=== PATIENT | female | born 1995 | race Caucasian/White ===

== ENCOUNTER 2017-07-02 13:26 | Emergency (ER) | payer OTHER ==
[2017-07-02 13:35] VITALS: BMI 20.7
[2017-07-02] MEDS ORDERED: SODIUM CHLORIDE 1,000 ML IV STA ×2 (13:41→15:06)
[2017-07-02] MEDS ORDERED: ONDANSETRON 4 MG/2 ML VIAL IVPB ONE (13:41)
[2017-07-02] MEDS ORDERED: ONDANSETRON 4 MG/2 ML VIAL ONE ×2 (13:42→17:15)
[2017-07-02] MEDS ORDERED: METOCLOPRAMIDE HCL INJECTION 10 MG/2 ML VIAL IVPB ONE (15:06)
--- NOTE | 2017-07-02 15:06 | PDOC ---
History of Present Illness - General Chief Complaint: Pain, Acute Stated Complaint: ABD PAIN Time Seen by Provider: 07/02/17 15:02 History Source: Patient Exam Limitations: No Limitations - History of Present Illness Initial Comments: 07/02/17 15:39 Patient is a 21-year-old female past medical history of alcoholic gastritis, who presents to emergency department today complaining of uncontrollable vomiting after taking azithromycin. She states that she was prescribed azithromycin for an upper respiratory infection and she started taking the pills today. She reports that after taking the pills approximately half an hour later she developed uncontrollable vomiting, nausea and diarrhea. She states that her whole abdomen hurts from vomiting. She also states that she has had cyclic oh vomiting in the past due to alcohol for which she has stopped. Denies fevers, shortness of breath, difficulty breathing, chest pain. Denies alcohol, drug use. Patient is a nonsmoker. Past History - Travel Traveled outside of the country in the last 30 days: No Close contact w/someone who was outside of country & ill: No - Past Medical History Allergies/Adverse Reactions: Allergies Allergy/AdvReac Type Severity Reaction Status Date / Time No Known Allergies Allergy Verified 03/12/13 17:15 Home Medications: Ambulatory Orders NK [No Known Home Medication] 07/02/17 Asthma: No Cancer: No Cardiac Disorders: No COPD: No Diabetes: No HTN: No Seizures: No Thyroid Disease: No - Suicide/Smoking/Psychosocial Hx Smoking Status: No Smoking History: Never smoked Have you smoked in the past 12 months: No Number of Cigarettes Smoked Daily: 0 Information on smoking cessation initiated: No Hx Alcohol Use: No Drug/Substance Use Hx: No Substance Use Type: None Hx Substance Use Treatment: No Review of Systems - Review of Systems Able to Perform ROS?: Yes Comments:: 07/02/17 16:41 CONSTITUTIONAL: Absent: fever, chills, diaphoresis, generalized weakness, malaise, loss of appetite HEENT: Absent: rhinorrhea, nasal congestion, throat pain, throat swelling, difficulty swallowing, mouth swelling, ear pain, eye pain, visual Changes CARDIOVASCULAR: Absent: chest pain, loss of consciousness, palpitations, irregular heart rate, peripheral edema RESPIRATORY: Absent: cough, shortness of breath, dyspnea with exertion, orthopnea, wheezing, stridor, hemoptysis GASTROINTESTINAL: Present: abdominal pain, nausea, vomiting, diarrhea. Absent: abdominal distension, constipation, melena, hematochezia GENITOURINARY: Absent: dysuria, frequency, urgency, hesitancy, hematuria, flank pain, genital pain MUSCULOSKELETAL: Absent: myalgia, arthralgia, joint swelling SKIN: Absent: rash, itching, pallor HEMATOLOGIC/IMMUNOLOGIC: Absent: easy bleeding, easy bruising, lymphadenopathy, frequent infections ENDOCRINE: Absent: unexplained weight gain, unexplained weight loss, heat intolerance, cold intolerance NEUROLOGIC: Absent: headache, focal weakness or paresthesias, dizziness, unsteady gait, seizure, mental status changes, bladder or bowel incontinence PSYCHIATRIC: Absent: anxiety, depression, suicidal or homicidal ideation, hallucinations. Is the patient limited Romanian proficient: No *Physical Exam - Vital Signs Last Vital Signs Temp Pulse Resp BP Pulse Ox 98 F 72 20 117/68 100 07/02/17 13:32 07/02/17 13:32 07/02/17 13:32 07/02/17 13:32 07/02/17 13:32 - Physical Exam Comments: 07/02/17 16:42 GENERAL: Well developed, well nourished. Awake and alert. In mild distress, actively vomiting. HEENT: Normocephalic, atraumatic. PERRLA, EOMI. No conjunctival pallor. Sclera are non- icteric. Moist mucous membranes. Oropharynx is clear. NECK: Supple. Full ROM. No JVD. Carotid pulses 2+ and symmetric, without bruits. No thyromegaly. No lymphadenopathy. CARDIOVASCULAR: Regular rate and rhythm. No murmurs, rubs, or gallops. Distal pulses are 2+ and symmetric. PULMONARY: No evidence of respiratory distress. Lungs clear to auscultation bilaterally. No wheezing, rales or rhonchi. ABDOMINAL: TTP RUQ, LUQ, epigastric region. Soft. Non-distended. No rebound or guarding. No organomegaly. Normoactive bowel sounds. MUSCULOSKELETAL Normal range of motion at all joints. No bony deformities or tenderness. No CVA tenderness. EXTREMITIES: No cyanosis. No clubbing. No edema. No calf tenderness. SKIN: Warm and dry. Normal capillary refill. No rashes. No jaundice. NEUROLOGICAL: Alert, awake, appropriate. Cranial nerves 2-12 intact. No deficits to light touch and temperature in face, upper extremities and lower extremities. No motor deficits in the in face, upper extremities and lower extremities. Normoreflexic in the upper and lower extremities. Normal speech. Toes are down- going bilaterally. Gait is normal without ataxia. PSYCHIATRIC: Cooperative. Good eye contact. Appropriate mood and affect. ED Treatment Course - LABORATORY CBC & Chemistry Diagram: 07/02/17 15:36 07/02/17 15:55 - Medications Given in the ED: ED Medications Discontinued Medications Generic Name Dose Route Start Last Admin Trade Name Mitch PRN Reason Stop Dose Admin Sodium Chloride 1,000 mls @ 1,000 mls/hr 07/02/17 13:41 07/02/17 13:59 Normal Saline - IV 07/02/17 14:40 1,000 mls/hr ASDIR STA Administration Ondansetron HCl 4 mg 07/02/17 13:41 07/02/17 14:00 Zofran Injection IVPB 07/02/17 13:42 4 mg ONCE ONE Administration Medical Decision Making - Medical Decision Making 07/02/17 15:43 Patient is a 21-year-old female past medical history of alcoholic gastritis, who presents to the emergency department today complaining of uncontrollable nausea and vomiting for approximately one hour due to azithromycin. Patient received Zofran and famotidine with no relief. 1.basic labs 2.Reglan, Benadryl, IV fluids 3.reevaluate 07/02/17 16:43 Patient still vomiting despite treatment. Will give another dose of Zofran at this time. We'll also order UA and urine tox. 07/02/17 18:43 Patient still vomiting after 2 doses of Zofran Reglan, famotidine and Toradol. We'll try Ativan at this time 07/02/17 19:00 Sign out given to Bina Raymundo NP. Pending U tox. If patient is vomiting is controlled may home. *DC/Admit/Observation/Transfer - Referrals Referrals: Anitra Burch [Primary Care Provider] - - Patient Instructions - Post Discharge Activity
[2017-07-02] MEDS ORDERED: KETOROLAC TROMETHAMINE 30 MG/1 ML VIAL IVPUSH ONE (15:07)
[2017-07-02] MEDS ORDERED: METOCLOPRAMIDE HCL INJECTION 10 MG/2 ML VIAL ONE (15:14)
[2017-07-02] MEDS ORDERED: FAMOTIDINE 20 MG/50 ML IVPB 20 MG/50 ML MG IVPB ONE (15:15)
[2017-07-02] MEDS ORDERED: KETOROLAC TROMETHAMINE 30 MG/1 ML VIAL ONE (15:15)
[2017-07-02 16:22] LABS: BASO % 0.2 % (0-2.0); EOS % 0.8 % (0-4.5); HEMATOCRIT 39.2 % (32.4-45.2); LYMPH % 15.7 % (8-40); MCH 31.8 pg (25.7-33.7); MCHC 33.3 g/dl (32.0-36.0); MEAN CELL VOLUME 95.6 fl (80-96); MEAN PLT VOLUME 8.6 fl (7.5-11.1); MONO % 4.4 % (3.8-10.2); NEUT % 78.9 % (42.8-82.8); PLATELET COUNT 295 K/MM3 (134-434); RDW 12.3 % (11.6-15.6)
[2017-07-02 16:29] LABS: ALBUMIN 4.3 g/dl (3.4-5.0); ANION GAP 12 (8-16); BILIRUBIN,TOTAL 0.3 mg/dL (0.2-1.0); BLOOD UREA NITROGEN 15 mg/dL (7-18); CALCIUM 9.4 mg/dL (8.5-10.1); CHLORIDE 104 mmol/L (98-107); CO2 23 mmol/L (21-32); CREATININE 0.6 mg/dL (0.55-1.02); GLUCOSE,RANDOM 73 mg/dL (74-106); POTASSIUM 3.9 mmol/L (3.5-5.1); SGOT/AST 19 U/L (15-37); SGPT/ALT 25 U/L (12-78); SODIUM 139 mmol/L (136-145); TOT PROT 7.8 g/dl (6.4-8.2)
[2017-07-02 16:30] LABS: LIPASE 142 U/L (73-393)
[2017-07-02 16:38] LABS: ALK PHOS 69 U/L (45-117)
[2017-07-02] MEDS ORDERED: ONDANSETRON 4 MG/2 ML VIAL IVPUSH ONE (17:05)
[2017-07-02 18:56] LABS: URINE APPEARANCE CLEAR; URINE BILIRUBIN NEGATIVE (NEGATIVE); URINE BLOOD NEGATIVE (NEGATIVE); URINE COLOR STRAW; URINE GLUCOSE (UA) NEGATIVE (NEGATIVE); URINE KETONE TRACE (NEGATIVE); URINE LEUK ESTERASE NEGATIVE (NEGATIVE); URINE NITRITE NEGATIVE (NEGATIVE); URINE PROTEIN NEGATIVE (NEGATIVE); URINE UROBILINOGEN NEGATIVE mg/dL (0.2-1.0)
[2017-07-02] MEDS ORDERED: LORazepam 2 MG/ML SDV VIAL ONE (19:01)
[2017-07-02 19:55] VITALS: BP 113/86; PULSE 82; TEMP 98.3
[2017-07-02] MEDS ORDERED: TRIMETHOBENZAMIDE HCL 300 MG CAPSULE PO ONE (20:01)
[2017-07-02] MEDS ORDERED: SODIUM CHLORIDE 0.9% 1000 ML INFUS.BAG IV ONE (20:02)
[2017-07-02 20:21] LABS: URINE AMPHETAMINES NEGATIVE ng/ml (CUTOFF=500)
[2017-07-02 20:22] LABS: COCAINE, UR NEGATIVE ng/ml (CUTOFF=300); METHADONE, UR NEGATIVE ng/ml (CUTOFF=300); OPIATES, URI NEGATIVE ng/ml (CUTOFF=300); PHENCYCLIDINE,URINE NEGATIVE ng/ml (CUTOFF=25); URINE BARBITURATES NEGATIVE ng/ml (CUTOFF=200); URINE BENZODIAZEPINES NEGATIVE ng/ml (CUTOFF=200)
--- NOTE | 2017-07-02 20:34 | PDOC ---
*Physical Exam - Vital Signs Last Vital Signs Temp Pulse Resp BP Pulse Ox 98.3 F 82 18 113/86 98 07/02/17 19:55 07/02/17 19:55 07/02/17 19:55 07/02/17 19:55 07/02/17 19:55 - Physical Exam Comments: 07/02/17 20:29 Sign-out received from outgoing ER provider Qamar. Ancillary studies reviewed. Patient utox positive for marijuana. Pt interviewed and examined. Patient states she is still nauseous and now a "a little drowsy." Will trial Tigan and another liter of IVF and reassess. Patient denies any abdominal pain at this time, clinical presentation consistent with cyclical vomiting secondary to marijuana use. ED Treatment Course - LABORATORY CBC & Chemistry Diagram: 07/02/17 15:36 07/02/17 15:55 - ADDITIONAL ORDERS Additional order review: Laboratory Results 07/02/17 07/02/17 07/02/17 18:25 18:25 15:55 Sodium Potassium Chloride Carbon Dioxide Anion Gap BUN Creatinine Creat Clearance w eGFR Random Glucose Calcium Total Bilirubin AST ALT Alkaline Phosphatase Total Protein Albumin Lipase 142 TSH Beta HCG, Quant < 1.0 Urine Color Straw Urine Appearance Clear Urine pH 7.0 Ur Specific [place] 1.016 Urine Protein Negative Urine Glucose (UA) Negative Urine Ketones Trace H Urine Blood Negative Urine Nitrite Negative Urine Bilirubin Negative Urine Urobilinogen Negative Ur Leukocyte Esterase Negative Opiates Screen Negative Methadone Screen Negative Barbiturate Screen Negative Phencyclidine Screen Negative Ur Amphetamines Screen Negative MDMA (Ecstasy) Screen Negative Benzodiazepines Screen Negative Cocaine Screen Negative U Marijuana (THC) Screen Positive 07/02/17 15:55 Sodium 139 Potassium 3.9 Chloride 104 Carbon Dioxide 23 Anion Gap 12 BUN 15 Creatinine 0.6 Creat Clearance w eGFR > 60 Random Glucose 73 L Calcium 9.4 Total Bilirubin 0.3 AST 19 ALT 25 Alkaline Phosphatase 69 Total Protein 7.8 Albumin 4.3 Lipase TSH 2.64 Beta HCG, Quant Urine Color Urine Appearance Urine pH Ur Specific [place] Urine Protein Urine Glucose (UA) Urine Ketones Urine Blood Urine Nitrite Urine Bilirubin Urine Urobilinogen Ur Leukocyte Esterase Opiates Screen Methadone Screen Barbiturate Screen Phencyclidine Screen Ur Amphetamines Screen MDMA (Ecstasy) Screen Benzodiazepines Screen Cocaine Screen U Marijuana (THC) Screen 07/02/17 15:36 RBC 4.10 D MCV 95.6 MCHC 33.3 RDW 12.3 MPV 8.6 Neutrophils % 78.9 Lymphocytes % 15.7 D Monocytes % 4.4 Eosinophils % 0.8 D Basophils % 0.2 - Medications Given in the ED: ED Medications Discontinued Medications Generic Name Dose Route Start Last Admin Trade Name Arleyq PRN Reason Stop Dose Admin Diphenhydramine HCl 12.5 mg 07/02/17 15:07 07/02/17 15:28 Benadryl Injection - IVPUSH 07/02/17 15:08 12.5 mg ONCE ONE Administration Sodium Chloride 1,000 mls @ 1,000 mls/hr 07/02/17 13:41 07/02/17 13:59 Normal Saline - IV 07/02/17 14:40 1,000 mls/hr ASDIR STA Administration Famotidine/Sodium Chloride 20 mg in 50 mls @ 100 mls/hr 07/02/17 15:15 15:08 Pepcid 20 Mg Premixed Ivpb - IVPB 07/02/17 15:44 100 mls/hr ONCE ONE Administration Sodium Chloride 1,000 mls @ 1,000 mls/hr 07/02/17 15:06 07/02/17 15:28 Normal Saline - IV 07/02/17 16:05 1,000 mls/hr ASDIR STA Administration Ketorolac Tromethamine 30 mg 07/02/17 15:07 07/02/17 15:20 Toradol Injection - IVPUSH 07/02/17 15:08 30 mg ONCE ONE Administration Lorazepam 0.5 mg 07/02/17 18:15 07/02/17 19:05 Ativan Injection - IVPUSH 07/02/17 18:16 0.5 mg ONCE ONE Administration Metoclopramide HCl 10 mg 07/02/17 15:06 07/02/17 15:28 Reglan Injection - IVPB 07/02/17 15:07 10 mg ONCE ONE Administration Ondansetron HCl 4 mg 07/02/17 13:41 07/02/17 14:00 Zofran Injection IVPB 07/02/17 13:42 4 mg ONCE ONE Administration Ondansetron HCl 4 mg 07/02/17 17:05 07/02/17 17:17 Zofran Injection IVPUSH 07/02/17 17:06 4 mg ONCE ONE Administration *DC/Admit/Observation/Transfer Diagnosis at time of Disposition: Cyclical vomiting Qualifiers: Vomiting Intractability: intractable Nausea presence: with nausea Qualified Code(s): G43.A1 - Cyclical vomiting, intractable - Discharge Dispostion Disposition: HOME Condition at time of disposition: Stable Admit: No - Prescriptions Prescriptions: Ondansetron [Zofran *Odt*] 8 mg SL TID #21 od.tablet Pantoprazole Sodium [Protonix] 40 mg PO DAILY #14 tablet.dr - Referrals Referrals: Anitra Burch [Primary Care Provider] - - Patient Instructions Printed Discharge Instructions: DI for Vomiting -- Adult Additional Instructions: Please take medications as prescribed and discontinue the azithromycin. Please note that chronic marijuana use can trigger these symptoms. Follow up with your primary care doctor within the next 2 days. If you develop any new or worsening symptoms, please return to the ER. - Post Discharge Activity
[2017-07-02] MEDS ORDERED: DICYCLOMINE HCL 10 MG/5 ML PO ONE (20:42)
[2017-07-02] MEDS ORDERED: DICYCLOMINE HCL 10 MG CAPSULE ONE (20:50)
== END 2017-07-02 21:26 | disposition home or self-care (01) ==
LOC: JER 13:26
PROC: 3E033GC Introduction of Other Therapeutic Substance into Peripheral Vein, Percutaneous Approach (ICD-10-PCS; principal; 2017-07-02)
PROC: 3E033NZ Introduction of Analgesics, Hypnotics, Sedatives into Peripheral Vein, Percutaneous Approach (ICD-10-PCS; 2017-07-02)
PROC: 3E0333Z Introduction of Anti-inflammatory into Peripheral Vein, Percutaneous Approach (ICD-10-PCS; 2017-07-02)
PROC: 3E033GC Introduction of Other Therapeutic Substance into Peripheral Vein, Percutaneous Approach (ICD-10-PCS; 2017-07-02)
PROC: 3E033GC Introduction of Other Therapeutic Substance into Peripheral Vein, Percutaneous Approach (ICD-10-PCS; 2017-07-02)
DX: G43.A0 Cyclical vomiting, in migraine, not intractable (principal); T40.7X5A Adverse effect of cannabis (derivatives), initial encounter; Y92.89 Other specified places as the place of occurrence of the external cause
CPT/HCPCS: 36415; 80053; 80307; 81003; 83690; 84443; 84702; 85025; 87086; 99283-25

== ENCOUNTER 2017-10-22 07:45 | Emergency (ER) | payer OTHER ==
[2017-10-22 07:54] VITALS: BMI 20.2
--- NOTE | 2017-10-22 08:26 | PDOC ---
History of Present Illness - General History Source: Patient Exam Limitations: No Limitations - History of Present Illness Initial Comments: 10/22/17 08:42 The patient is a 22 year old female, with a significant past medical history of GERD, who presents to the emergency department with abdominal pain for approximately 10 days. The patient reports developing RUQ and epigastric pain s/ p ETOH use on 10/11/17. The patient reports being evaluated at [facility] for her pain, where she had bloodwork and an US, which were negative. Patient states she was discharged on Cefuroxime for a UTI, which she completed, but did not resolve her pain. The patient states she returned to the ED and was discharged on Bentyl with minimal relief of symptoms. Patient reports being evaluated by her PCP, who prescribed Omeprazole yesterday. Patient reports her pain is worse with eating, when taking her medication, or when lying down. She denies any nausea, vomiting, diarrhea, or constipation. She denies any dysuria, hematuria, frequency, or urgency. She denies any fever or chills. She denies any chest pain, shortness of breath, diaphoresis, or palpitations. No recent travel or sick contacts. Allergies: NKDA Past Surgical History: None reported Social History: Social ETOH use. Non smoker. No recreational drug use. <Sonja Em - Last Filed: 10/22/17 08:42> <Roseann Velazquez - Last Filed: 10/22/17 12:52> - General Chief Complaint: Pain, Acute Stated Complaint: ABDOMINAL PAIN Time Seen by Provider: 10/22/17 08:25 Past History <Sonja Em - Last Filed: 10/22/17 08:42> - Past Medical History Asthma: No Cancer: No Cardiac Disorders: No COPD: No Diabetes: No HTN: No Seizures: No Thyroid Disease: No Other medical history: gastritis - Immunization History Immunization Up to Date: Yes - Suicide/Smoking/Psychosocial Hx Smoking Status: No Smoking History: Never smoked Have you smoked in the past 12 months: No Number of Cigarettes Smoked Daily: 0 Hx Alcohol Use: No Drug/Substance Use Hx: No Substance Use Type: Marijuana Hx Substance Use Treatment: No <Roseann Velazquez - Last Filed: 10/22/17 12:52> - Past Medical History Allergies/Adverse Reactions: Allergies Allergy/AdvReac Type Severity Reaction Status Date / Time No Known Allergies Allergy Verified 10/22/17 07:48 Home Medications: Ambulatory Orders Dicyclomine HCl [Bentyl -] 20 mg PO Q8H 10/22/17 Omeprazole 20 mg PO DAILY 10/22/17 Review of Systems - Review of Systems Able to Perform ROS?: Yes Comments:: 10/22/17 08:42 GENERAL/CONSTITUTIONAL: No fever or chills. No weakness. HEAD, EYES, EARS, NOSE AND THROAT: No change in vision. No ear pain or discharge. No sore throat. GASTROINTESTINAL: +Abdominal pain(RUQ, Epigastric). No nausea, vomiting, diarrhea or constipation. GENITOURINARY: No dysuria, frequency, or change in urination. CARDIOVASCULAR: No chest pain or shortness of breath. RESPIRATORY: No cough, wheezing, or hemoptysis. MUSCULOSKELETAL: No joint or muscle swelling or pain. No neck or back pain. SKIN: No rash NEUROLOGIC: No headache, vertigo, loss of consciousness, or change in strength/ sensation. ENDOCRINE: No increased thirst. No abnormal weight change. HEMATOLOGIC/LYMPHATIC: No anemia, easy bleeding, or history of blood clots. ALLERGIC/IMMUNOLOGIC: No hives or skin allergy. <Sonja Em - Last Filed: 10/22/17 08:42> *Physical Exam - Vital Signs Last Vital Signs Temp Pulse Resp BP Pulse Ox 98.4 F 74 18 104/70 100 10/22/17 07:48 10/22/17 07:48 10/22/17 07:48 10/22/17 07:48 10/22/17 07:48 - Physical Exam Comments: 10/22/17 08:43 Constitutional: Awake, alert, oriented. No acute distress. Head: Normocephalic. Atraumatic Eyes: PERRL. EOMI. Conjunctivae are not pale. ENT: Mucous membranes are moist and intact. Posterior pharynx without exudates or erythema. Uvula midline. Neck: Supple. Full ROM. No lymphadenopathy. Cardiovascular: Regular rate. Regular rhythm. S1, S2 regular. Distal pulses are 2+ and symmetric. Pulmonary/Chest: No evidence of respiratory distress. Clear to auscultation bilaterally No wheezing, rales or rhonchi. Abdominal: Epigatric, RUQ, and LUQ tenderness to palpation, but no guarding, rebound, or rigidity. Soft and non-distended. No organomegaly. No palpable masses. Good bowel sounds. Back: No CVA tenderness. Musculoskeletal: No edema. No cyanosis. No clubbing. Full range of motion in all extremities. No calf tenderness. Radial/pedal pulses are intact and 2+ bilaterally Skin: Skin is warm and dry. No petechiae. No purpura. Neurological: Alert and oriented to person, place, and time. Cranial nerves II -XII are grossly intact. Normal speech. Strength is grossly symmetric. No sensory deficits. Psychiatric: Good eye contact. Normal interaction, affect and behavior. <Sonja Em - Last Filed: 10/22/17 08:42> - Vital Signs Last Vital Signs Temp Pulse Resp BP Pulse Ox 98.4 F 74 18 104/70 100 10/22/17 07:48 10/22/17 07:48 10/22/17 07:48 10/22/17 07:48 10/22/17 07:48 <Roseann Velazquez - Last Filed: 10/22/17 12:52> ED Treatment Course - LABORATORY CBC & Chemistry Diagram: 10/22/17 08:40 10/22/17 08:40 <Roseann Velazquez - Last Filed: 10/22/17 12:52> Medical Decision Making - Medical Decision Making 10/22/17 08:55 a/p: 22yo female with 2 week hx of epigastric pain -on bentyl and omeprazole as an outpt -has had labs/ultrasound at [facility] saw PMD yesterday -still with pain, no n/v/d -no urinary complaints though recently treated for UTI started after alcohol use hx of gastritis -will cehck labs, ultrasound gi cocktail will monitor and reassess 10/22/17 12:48 ultrasound without acute jose, no stones visualized lipase normal lft without acute findings renal function normal on re-eval: pt resting comfortably - easily arousable states feeling better discussed need for GI follow up with poss endoscopy for epigastric pain answered all questions only started omeprazole yesterday - discussed it may take some time for the pain to improve - poss PUD vs gastritis stable for d/c to home <Roseann Velazquez - Last Filed: 10/22/17 12:52> *DC/Admit/Observation/Transfer - Attestations Scribe Attestion: 10/22/17 08:44 Documentation prepared by Sonja Em, acting as medical records assistant for Roseann Velazquez DO. <Sonja Em - Last Filed: 10/22/17 08:42> - Discharge Dispostion Decision to Admit order: No - Attestations Physician Attestion: 10/22/17 12:52 I, Dr. Roseann Velazquez DO, attest that this document has been prepared under my direction and personally reviewed by me in its entirety. I further attest, that it accurately reflects all work, treatment, procedures and medical decision -making performed by me. <Roseann Velazquez - Last Filed: 10/22/17 12:52> Diagnosis at time of Disposition: Epigastric abdominal pain - Discharge Dispostion Disposition: HOME Condition at time of disposition: Stable - Referrals Referrals: Anitra Burch [Primary Care Provider] - Brandyn Hancock MD [Staff Physician] - Scott Patel MD [Staff Physician] - Doug Carter MD [Staff Physician] - - Patient Instructions Printed Discharge Instructions: DI for Epigastric Pain Additional Instructions: Please continue to take the omeprazole your PMD prescribed yesterday. Please return to the ED with any further concerns or worsening pain. Please stick to the BRAT diet (bananas, rice, apple sauce, and toast). Please drink clear liquids.
[2017-10-22 08:50] LABS: BASO % 0.7 % (0-2.0); EOS % 0.8 % (0-4.5); HEMATOCRIT 34.7 % (32.4-45.2); HEMOGLOBIN 11.9 GM/dL (10.7-15.3); LYMPH % 15.4 % (8-40); MCH 32.2 pg (25.7-33.7); MCHC 34.4 g/dl (32.0-36.0); MEAN CELL VOLUME 93.5 fl (80-96); MONO % 5.5 % (3.8-10.2); NEUT % 77.6 % (42.8-82.8); PLATELET COUNT 393 K/MM3 (134-434); RBC 3.71 M/mm3 (3.60-5.2); RDW 11.9 % (11.6-15.6); WHITE BLOOD COUNT 10.2 K/mm3 (4.0-10.0)
[2017-10-22 09:01] LABS: URINE APPEARANCE CLEAR; URINE BILIRUBIN NEGATIVE (<2.0 mg/dL); URINE COLOR YELLOW; URINE GLUCOSE (UA) NEGATIVE (NEGATIVE); URINE KETONE 1+ (NEGATIVE); URINE LEUK ESTERASE NEGATIVE (NEGATIVE); URINE NITRITE NEGATIVE (NEGATIVE); URINE PROTEIN NEGATIVE (NEGATIVE); URINE UROBILINOGEN NEGATIVE mg/dL (0.2-1.0)
[2017-10-22 09:16] LABS: CHLORIDE 101 mmol/L (98-107); POTASSIUM 4.1 mmol/L (3.5-5.1); SODIUM 136 mmol/L (136-145)
[2017-10-22 09:27] LABS: ALK PHOS 92 U/L (45-117); ANION GAP 8 (8-16); BILIRUBIN,TOTAL 0.2 mg/dL (0.2-1.0); CO2 27 mmol/L (21-32); SGOT/AST 24 U/L (15-37); SGPT/ALT 33 U/L (12-78); TOT PROT 8.1 g/dl (6.4-8.2)
[2017-10-22 09:43] LABS: ALBUMIN 3.5 g/dl (3.4-5.0); BLOOD UREA NITROGEN 9 mg/dL (7-18); CREATININE 0.6 mg/dL (0.55-1.02); GLUCOSE,RANDOM 99 mg/dL (74-106); LIPASE 139 U/L (73-393)
[2017-10-22 13:15] VITALS: BP 110/73; PULSE 80; TEMP 98.4
== END 2017-10-22 13:10 | disposition home or self-care (01) ==
LOC: JER 07:45
DX: R10.13 Epigastric pain (principal)
CPT/HCPCS: 36415; 71046-TC-FY; 76705-TC; 80053; 81003; 83690; 84703; 85025; 99283-25

== ENCOUNTER 2017-11-28 06:19 | Day surgery (SDC) | payer OTHER ==
[2017-11-27 11:56] VITALS: BMI 20.7
[2017-11-28] MEDS ORDERED: BUPIVACAINE HCL/PF 0.5% (5MG/ML) 10 ML VIAL ONE (07:21)
--- NOTE | 2017-11-28 07:52 | HP ---
Admitting History and Physical - Admission Chief Complaint: Pelvic pain / Right ovarian cyst History of Present Illness: 22 yo Para 1 with ovarian cyst associated with elevated tumor marker is pre op for Laparoscopic ovarian cystectomy, possible Oophorectomy and possible Laparotomy. History Source: Patient Limitations to Obtaining History: No Limitations - Past Medical History ...LMP: 11/27/17 ...: No ...Para: 1 - Past Surgical History Past Surgical History: Yes: None - Smoking History Smoking history: Never smoked Have you smoked in the past 12 months: No Aproximately how many cigarettes per day: 0 - Alcohol/Substance Use Hx Alcohol Use: No (quit 10/11/17) - Social History Usual Living Arrangement: Yes: With Child History of Recent Travel: No Home Medications - Allergies Allergies/Adverse Reactions: Allergies Allergy/AdvReac Type Severity Reaction Status Date / Time No Known Allergies Allergy Verified 11/28/17 06:46 - Home Medications Home Medications: Ambulatory Orders Metoclopramide HCl 5 mg PO AC 11/28/17 Pantoprazole Sodium 40 mg PO DAILY 11/28/17 oxyCODONE HCL [Roxicodone -] 5 mg PO Q4H PRN #18 tablet MDD 6 11/28/17 Family Disease History - Family Disease History Family History: Unremarkable Review of Systems - Review of Systems Constitutional: reports: No Symptoms Eyes: reports: No Symptoms HENT: reports: No Symptoms Neck: reports: No Symptoms Cardiovascular: reports: No Symptoms Respiratory: reports: No Symptoms Gastrointestinal: reports: No Symptoms Genitourinary: reports: Pain Breasts: reports: No Symptoms Reported Musculoskeletal: reports: No Symptoms Integumentary: reports: No Symptoms Neurological: reports: No Symptoms Endocrine: reports: No Symptoms Hematology/Lymphatic: reports: No Symptoms Psychiatric: reports: No Symptoms Pain Intensity: 6 Physical Examination Vital Signs: Vital Signs Temperature 98.0 F 11/28/17 06:44 Pulse Rate 66 11/28/17 06:44 Respiratory Rate 20 11/28/17 06:44 Blood Pressure 111/74 11/28/17 06:44 O2 Sat by Pulse Oximetry (%) 98 11/28/17 06:44 Constitutional: Yes: Well Nourished Eyes: Yes: Conjunctiva Clear HENT: Yes: Atraumatic Neck: Yes: Supple Cardiovascular: Yes: Regular Rate and Rhythm Respiratory: Yes: Regular Gastrointestinal: Yes: Normal Bowel Sounds Breast(s): Yes: WNL Musculoskeletal: Yes: WNL Extremities: Yes: WNL Neurological: Yes: Alert, Oriented ...Motor Strength: WNL Psychiatric: Yes: Alert, Oriented Problem List - Problems (1) Ovarian cyst Code(s): N83.209 - UNSPECIFIED OVARIAN CYST, UNSPECIFIED SIDE Qualifiers: Laterality: right Qualified Code(s): N83.201 - Unspecified ovarian cyst, right side Assessment/Plan Right ovarian cyst Pre op for Laparoscopy Consent signed Anesthesia to see patient
[2017-11-28] MEDS ORDERED: ceFAZolin SODIUM 1 GM VIAL IVPB ONE (07:55)
[2017-11-28] MEDS ORDERED: BUPIVACAINE HCL/PF 0.5% (5MG/ML) 10 ML VIAL IJ ONE (08:12)
[2017-11-28] MEDS ORDERED: ACETAMINOPHEN INJECTION 100 ML IVPB ONE (08:41)
--- NOTE | 2017-11-28 08:57 | OP ---
Operative Note - Note: Operative Date: 11/28/17 Pre-Operative Diagnosis: Right ovarian cyst Operation: Laparoscopic oophorectomy Findings: Right ovarian cyst Post-Operative Diagnosis: Same as Pre-op Surgeon: Precious Villarreal Order Packer: Navarro Rizvi Anesthesiologist/COLD TYPE COMPOSING MACHINE OPERATOR: Isauro Kwan Anesthesia: General Specimens Removed: Right ovary Estimated Blood Loss (mls): 30
[2017-11-28] MEDS ORDERED: PROMETHAZINE HCL 25 MG/1 ML VIAL IVPUSH PRN (09:10)
[2017-11-28] MEDS ORDERED: ONDANSETRON 4 MG/2 ML VIAL IVPUSH PRN (09:10)
[2017-11-28] MEDS ORDERED: LACTATED RINGERS SOLUTION 1,000 ML IV SCH (09:15)
[2017-11-28 11:27] VITALS: TEMP 97.9
--- NOTE | 2017-11-28 12:11 | SURG ---
Surgery Algologist Note Algologist: Navarro Rizvi PA-C Date of Service: 11/28/17 Diagnosis: Right ovarian cyst Procedure: Laparoscopic right oophorectomy I was present for the entirety of the operative procedure. For further detail, please refer to operative report. Visit type - Case Type Case Type: Scheduled - New patient This patient is new to me today: Yes Date on this admission: 11/28/17
[2017-11-28 15:37] VITALS: BP 112/67; PULSE 64
--- NOTE | 2017-12-01 15:57 | PATH ---
Surgical Pathology Report Patient Name: ANTHONY RUCKER [facility]. Rec. #: [id number] /Age/Gender: 1995 (Age: 22) / F Account: [id number] Location: [facility] SURGICAL Taken: 11/28/2017 Received: 11/28/2017 Reported: 12/01/2017 Physicians: Precious Villarreal M.D. Specimen(s) Received A: ENDOMETRIAL IMPLANT B: RIGHT OVARY Clinical History Right ovarian cyst Final Diagnosis A. ENDOMETRIAL IMPLANT, EXCISION: POLYPOID GRANULATION TISSUE WITH HEMORRHAGIC INFARCT. B. RIGHT OVARY, OOPHORECTOMY: OVARIAN TISSUE WITH MATURE CYSTIC TERATOMA. Electronically Signed Renée Perez M.D. Gross Description A. Received in formalin labeled "endometrial implant," is a 1.0 x 0.9 x 0.3 cm patricia brown portion of soft tissue. The specimen is submitted in toto in one cassette. B. Received in formalin labeled "right ovary," is a 38 g, 4.8 x 4.7 x 3.6 cm cystic-appearing ovary. The outer surface is patricia and smooth. The lumen contains patricia sebaceous material and hair. No remaining normal ovarian parenchyma is identified. Separately received within the same container are 2 patricia-pink soft tissue fragments measuring 1.0 and 2.0 cm in greatest dimension. Reproductive Healthcare Assistant sections are submitted in 6 cassettes as follows: 5-8-sboesndehphmqe cyst; 5-smaller, bisected portion of separately received tissue; 6-larger, bisected portion of separately received tissue. /11/28/2017 saudi11/28/2017
== END 2017-11-28 15:00 | disposition home or self-care (01) ==
LOC: JASU-SURG 06:19
PROVIDERS: ATTEND Obstetrics & Gynecology
PROC: 0UT04ZZ Resection of Right Ovary, Percutaneous Endoscopic Approach (ICD-10-PCS; principal; 2017-11-28 07:30)
DX: D39.11 Neoplasm of uncertain behavior of right ovary (principal)
CPT/HCPCS: 88304-TC; 88305-TC; 94760; J0131

== ENCOUNTER 2020-06-19 13:09 | Emergency (ER) | payer OTHER ==
[2020-06-19 13:25] VITALS: BMI 20.2
[2020-06-19] MEDS ORDERED: ACETAMINOPHEN 1000 MG/100 ML BAG IVPB ONE (16:04)
[2020-06-19] MEDS ORDERED: FAMOTIDINE 20 MG/50 ML IVPB 20 MG/50 ML MG IVPB ONE ×2 (16:04→16:19)
[2020-06-19] MEDS ORDERED: MAG HYDROX/AL HYDROX/SIMETH 30 ML UNIT-DOSE CUP PO ONE (16:04)
[2020-06-19] MEDS ORDERED: ONDANSETRON 4 MG/2 ML VIAL IVPUSH ONE ×2 (16:05→18:50)
[2020-06-19] MEDS ORDERED: LACTATED RINGERS SOLUTION 1000 ML INFUS.BAG IV ONE (16:14)
[2020-06-19] MEDS ORDERED: MAG HYDROX/AL HYDROX/SIMETH 30 ML UNIT-DOSE CUP ONE (16:18)
[2020-06-19] MEDS ORDERED: ACETAMINOPHEN INJECTION 100 ML IVPB ONE (16:18)
[2020-06-19] MEDS ORDERED: ONDANSETRON 4 MG/2 ML VIAL ONE ×2 (16:19→19:06)
[2020-06-19 17:24] LABS: BASO % 0.3 % (0-2.0); HEMOGLOBIN 12.9 GM/dL (10.7-15.3); LYMPH % 11.1 % (8-40); MCH 32.7 pg (25.7-33.7); MCHC 33.8 g/dl (32.0-36.0); MEAN CELL VOLUME 96.7 fl (80-96); MEAN PLT VOLUME 8.1 fl (7.5-11.1); MONO % 3.2 % (3.8-10.2); NEUT % 85.4 % (42.8-82.8); PLATELET COUNT 256 K/MM3 (134-434); RBC 3.94 M/mm3 (3.60-5.2); RDW 12.7 % (11.6-15.6)
[2020-06-19 17:52] LABS: CALCIUM 9.5 mg/dL (8.5-10.1)
[2020-06-19 17:53] LABS: ALBUMIN 4.4 g/dl (3.4-5.0); BLOOD UREA NITROGEN 14.6 mg/dL (7-18)
[2020-06-19 17:54] LABS: MAGNESIUM 1.9 mg/dL (1.8-2.4)
[2020-06-19 17:56] LABS: CREATININE 0.7 mg/dL (0.55-1.3)
[2020-06-19 17:58] LABS: BILIRUBIN,TOTAL 0.4 mg/dL (0.2-1)
[2020-06-19 20:06] VITALS: BP 133/68; PULSE 88; TEMP 98
== END 2020-06-19 20:06 | disposition home or self-care (01) ==
LOC: JER 13:09
PROC: 3E0333Z Introduction of Anti-inflammatory into Peripheral Vein, Percutaneous Approach (ICD-10-PCS; principal; 2020-06-19)
PROC: 3E033GC Introduction of Other Therapeutic Substance into Peripheral Vein, Percutaneous Approach (ICD-10-PCS; 2020-06-19)
PROC: 3E033GC Introduction of Other Therapeutic Substance into Peripheral Vein, Percutaneous Approach (ICD-10-PCS; 2020-06-19)
PROC: 3E033GC Introduction of Other Therapeutic Substance into Peripheral Vein, Percutaneous Approach (ICD-10-PCS; 2020-06-19)
DX: R10.13 Epigastric pain (principal); R11.2 Nausea with vomiting, unspecified
CPT/HCPCS: 36415; 76705-TC; 80053; 83690; 83735; 84703; 85025; 93005; 93010; 99285-25; J0131

== ENCOUNTER → 2020-12-05 | Day surgery (SDC) | payer OTHER | END | disposition home or self-care (01) | LOC: JRADIR 09:34 | PROVIDERS: ATTEND Family Medicine | PROC: BU18YZZ Fluoroscopy of Uterus and Fallopian Tubes using Other Contrast (ICD-10-PCS; principal; 2020-12-05) | DX: N97.9 Female infertility, unspecified (principal) | CPT/HCPCS: 58340; 74740-TC-FY; 76000-TC-FY; 84703 ==

== ENCOUNTER 2023-05-13 22:15 | Inpatient (IN) | payer OTHER ==
[2023-05-14] MEDS ORDERED: DINOPROSTONE 10 MG VAGINAL SUPPOSITORY VG ONE (00:45)
[2023-05-14] MEDS ORDERED: ELECTROLYTE-148 SOLN 500 ML IV ONE (01:00)
[2023-05-14 01:21] LABS: BASO % 0.4 % (0-2.0); EOS % 0.7 % (0-4.5); HEMATOCRIT 31.4 % (32.4-45.2); LYMPH % 20.8 % (8-40); MCH 32.4 pg (25.7-33.7); MCHC 34.9 g/dl (32.0-36.0); MEAN CELL VOLUME 92.8 fl (80-96); MONO % 7.7 % (3.8-10.2); NEUT % 70.4 % (42.8-82.8); PLATELET COUNT 223 10^3/uL (134-434); RBC 3.38 M/mm3 (3.60-5.2); RDW 13.5 % (11.6-15.6); WHITE BLOOD COUNT 10.2 K/mm3 (4.0-10.0)
[2023-05-14 01:30] LABS: INR 0.97 (0.83-1.09); PROTHROMBIN TIME (PATIENT) 11.3 SEC (9.7-13.0)
[2023-05-14 01:33] LABS: ACTIVATED PTT 24.3 SECONDS (25.2-36.5)
[2023-05-14 01:39] LABS: POTASSIUM 3.5 mmol/L (3.5-5.1)
[2023-05-14 01:41] LABS: BLOOD UREA NITROGEN 7.8 mg/dL (7-18)
[2023-05-14 01:42] VITALS: BMI 29.2
[2023-05-14 01:44] LABS: CREATININE 0.6 mg/dL (0.55-1.3)
[2023-05-14 01:48] LABS: CALCIUM 8.3 mg/dL (8.5-10.1)
[2023-05-14] MEDS ORDERED: ELECTROLYTE-148 SOLN 1,000 ML IV SCH ×2 (02:00→08:30)
[2023-05-14 02:52] LABS: SYPHILIS W/ RPR CONF NON-REACTIVE (NONREACTIVE)
[2023-05-14 03:20] LABS: HIV INTERPRETATION NEGATIVE (NEGATIVE)
[2023-05-14] MEDS ORDERED: PROMETHAZINE HCL 25 MG/1 ML VIAL IVPB ONE (05:10)
[2023-05-14] MEDS ORDERED: BUTORPHANOL TARTRATE 1 MG/ML VIAL IVPB ONE (05:10)
[2023-05-14] MEDS ORDERED: PROMETHAZINE HCL 25 MG/1 ML VIAL ONE (05:12)
[2023-05-14] MEDS ORDERED: BUTORPHANOL TARTRATE 2 MG/ML VIAL ONE (05:12)
[2023-05-14] MEDS ORDERED: OXYTOCIN 30 UNITS in 0.9% NS 30 UNIT/500 ML INFUS.BAG IVPB ONE (05:58)
[2023-05-14] MEDS ORDERED: OXYTOCIN 30 UNITS in 0.9% NS 30 UNIT/500 ML INFUS.BAG IVPB SCH (06:00)
[2023-05-14] MEDS ORDERED: LIDOCAINE HCL/EPINEPHRINE/PF 10 ML VIAL ONE ×2 (08:21→10:28)
[2023-05-14] MEDS ORDERED: BUPIVACAINE HCL/PF 0.25% (2.5MG/ML) 10 ML VIAL ONE (08:21)
[2023-05-14] MEDS ORDERED: FENTANYL/BUPIVACAINE/NS/PF - PCEA - 50 ML DISP.SYRIN EP ONE (08:22)
[2023-05-14] MEDS ORDERED: NALOXONE HCL 0.4 MG/ML VIAL IVPUSH PRN (08:54)
[2023-05-14] MEDS ORDERED: FENTANYL/BUPIVACAINE/NS/PF - PCEA - 50 ML DISP.SYRIN EP SCH (09:00)
[2023-05-14] MEDS ORDERED: OXYTOCIN 20 UNITS in 0.9% NS 20 UNIT/1,000 ML INFUS.BAG IV ONE (12:28)
[2023-05-14] MEDS ORDERED: LIDOCAINE HCL 1% PRESERVATIVE FREE - 30ML VIAL ONE (12:28)
[2023-05-14 14:14] LABS: POC NITRAZINE NEG
[2023-05-14] MEDS ORDERED: WITCH HAZEL 50% (TUCKS) 40 PAD/JAR PAD TP PRN (14:24)
[2023-05-14] MEDS ORDERED: BISACODYL 10 MG SUPP.RECT RC PRN (14:24)
[2023-05-14] MEDS ORDERED: oxyCODONE HCL 5 MG TABLET PO PRN (14:24)
[2023-05-14] MEDS ORDERED: BENZOCAINE 20% 57 GM BOTTLE TP PRN (14:24)
[2023-05-14] MEDS ORDERED: METHYLERGONOVINE MALEATE 0.2 MG/1 ML AMP IM PRN (14:24)
[2023-05-14] MEDS ORDERED: ACETAMINOPHEN 325 MG TABLET (FP) PO PRN (14:24)
[2023-05-14] MEDS ORDERED: BENZOCAINE 28 GM HEMORRHOIDAL OINTMENT TP PRN (14:24)
[2023-05-14] MEDS ORDERED: OXYTOCIN 20 UNITS in 0.9% NS 20 UNIT/1,000 ML INFUS.BAG IV SCH (14:30)
[2023-05-14 14:57] LABS: CORD BASE EXCESS -6.2 mmol/L (0-2); CORD HCO3 24.9 mmHg (20-29); CORD PCO2 72.3 mmHg (30-78); CORD pH 7.155 (7.14-7.44)
[2023-05-14 15:00] LABS: CORD BASE EXCESS -5.4 mmol/L (0-2); CORD HCO3 21.1 mmHg (20-29); CORD PCO2 44.2 mmHg (30-78); CORD pH 7.296 (7.14-7.44)
[2023-05-14] MEDS: IBUPROFEN 600 MG TABLET (FP) PO PRN (16:50)
[2023-05-14 22:56] VITALS: RESP 18
[2023-05-15] MEDS: IBUPROFEN 600 MG TABLET (FP) PO PRN ×2 (04:08→18:28)
[2023-05-15 08:44] LABS: BASO % 0.4 % (0-2.0); EOS % 0.2 % (0-4.5); HEMATOCRIT 26.7 % (32.4-45.2); HEMOGLOBIN 9.3 GM/dL (10.7-15.3); LYMPH % 15.9 % (8-40); MCH 32.8 pg (25.7-33.7); MEAN CELL VOLUME 93.9 fl (80-96); MONO % 5.7 % (3.8-10.2); NEUT % 77.8 % (42.8-82.8); PLATELET COUNT 210 10^3/uL (134-434); RBC 2.84 M/mm3 (3.60-5.2); RDW 13.3 % (11.6-15.6); WHITE BLOOD COUNT 13.5 K/mm3 (4.0-10.0)
[2023-05-15] MEDS ORDERED: MEASLES,MUMPS&RUBELLA VACC/PF 0.5 ML VIAL SQ ONE (16:00)
[2023-05-15] MEDS ORDERED: SENNOSIDES/DOCUSATE COMBO (SENNA PLUS) TABLET (UD) PO PRN (22:00)
[2023-05-16] MEDS: IBUPROFEN 600 MG TABLET (FP) PO PRN (06:13)
[2023-05-16 08:42] VITALS: BP 124/82; PULSE 81; TEMP 98.2
== END 2023-05-16 13:21 | disposition home or self-care (01) | DRG 560 ==
LOC: JDEL 22:15 → JLDR 05-14 00:30 → J3W 05-14 15:25
PROVIDERS: ADMIT Family Medicine; ATTEND Family Medicine
PROC: 10E0XZZ Delivery of Products of Conception, External Approach (ICD-10-PCS; principal; 2023-05-14)
PROC: 3E0P7VZ Introduction of Hormone into Female Reproductive, Via Natural or Artificial Opening (ICD-10-PCS; 2023-05-14)
PROC: 3E033VJ Introduction of Other Hormone into Peripheral Vein, Percutaneous Approach (ICD-10-PCS; 2023-05-14)
PROC: 0HQ9XZZ Repair Perineum Skin, External Approach (ICD-10-PCS; 2023-05-14)
DX: O42.02 Full-term premature rupture of membranes, onset of labor within 24 hours of rupture (principal); O70.0 First degree perineal laceration during delivery; O69.81X0 Labor and delivery complicated by cord around neck, without compression, not applicable or unspecified; Z3A.39 39 weeks gestation of pregnancy; Z37.0 Single live birth
CPT/HCPCS: 36415; 36600; 76819-TC; 80048; 82803; 83986-QW; 85025; 85461; 85610; 85730; 86780; 86850; 86900; 86901; 87389